=== PATIENT | female | born 1965 | race Caucasian/White ===

== ENCOUNTER 2017-04-20 21:52 | Emergency (ER) | payer OTHER ==
[~2017-04-20] VITALS: Ht 167.6 cm; Wt 54.3 kg
[~2017-04-20 21:52] MED LIST: ACIDTAB4 PO; AMIT10TA13 PO; HYDR-3534 PO; IBUP800T23 PO; VALT500T PO; ZOFR4TAB3 PO
[2017-04-20 22:46] VITALS: BP 136/75; PULSE 74; RESP 12; TEMP 99.4; O2SAT 98
[2017-04-20] MEDS ORDERED: SUMA25TA2 PO (23:50)
[2017-04-20] MEDS ORDERED: AMIT10TA6 PO (23:50)
[2017-04-21] MEDS ORDERED: KETOROLAC TROMETHAMINE 60 MG/2 ML (IM) VIAL IM ONE (00:45)
[2017-04-21] MEDS ORDERED: PROMETHAZINE INJ 25 MG/ML VIAL IM ONE (00:45)
[2017-04-21] MEDS ORDERED: PROM1SUP7 RECTAL (00:49)
[2017-04-21] MEDS ORDERED: BUTA1CAP PO (00:49)
--- NOTE | 2017-04-21 00:49 | PD ---
HPI Chief Complaint: Headache Time Seen by Provider: 00:29 Travel History International Travel<30 days: No Contact w/Intl Traveler<30days: No Traveled to known affect area: No History of Present Illness HPI Patient has 51-year-old female who comes in complaining of a migraine headache. Patient has allergies to penicillin. Patient states that this is not typical of her migraine headaches AND has been going on for the past 4 hours without improvement. No alleviating or aggravating factors. Denies any associated factors such as fever cough runny nose nausea vomiting diarrhea. 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) Cardiovascular Problems: No Cerebrovascular Accident: No Diabetes: No Diminished Hearing: No Endocrine: No Gastrointestinal Disorders: Yes Genitourinary: No Headaches: Yes Hepatitis: No Hiatal Hernia: No Immune Disorder: No Musculoskeletal: Yes (ARTHRITIS) Neurologic: Yes (HX MIGRAINES) Psychiatric: No Reproductive: No Respiratory: No Migraines: Yes Seizures: No Thyroid Disease: Yes (LUMPS ON THYROID THAT WERE NEGATIVE BIOPSY ) Tetanus Vaccination: Unknown Influenza Vaccination: No ?: Not LMP: MENAPAUSAL Menopausal: Yes Past Surgical History Abdominal Surgery: No AICD: No Body Medical Devices: BYRON SILICONE BREAST IMPLANTS Cardiac Surgery: No Ear Surgery: No Endocrine Surgery: No Eye Surgery: No Genitourinary Surgery: No Gynecologic Surgery: Yes (ENDOMETRIAL ABLATION 2006) Joint Replacement: No Oral Surgery: No Pacemaker: No Thoracic Surgery: Yes (BREAST AUG - IN/OUT OVER 3 MOS - REPEAT BREAST SILICONE IMPLANTS 2010) Social History Alcohol Use: Yes (OCCASIONALLY. ) Tobacco Use: Yes (1/2 PACK PER DAY ) Substance Use: No Allergies-Medications (Allergen,Severity, Reaction): Coded Allergies: penicillin G (Unverified Allergy, Severe, HIVES, 04/20/17) Reported Meds & Prescriptions Reported Meds & Active Scripts Active Reported Sumatriptan (Sumatriptan Succinate) 25 Mg Tab 25 Mg PO ONCE PRN If a satisfactory response has not been obtained at 2 hours, a second dose may be administered Amitriptyline (Amitriptyline HCl) 10 Mg Tab 10 Mg PO HS Review of Systems Except as stated in HPI: all other systems reviewed are Neg General / Constitutional: No: Fever Eyes: No: Visual changes HENT: Positive: Headaches Cardiovascular: No: Chest Pain or Discomfort Respiratory: No: Shortness of Breath Gastrointestinal: No: Abdominal Pain Genitourinary: No: Dysuria Musculoskeletal: No: Pain Skin: No Rash Neurologic: No: Weakness Psychiatric: No: Depression Endocrine: No: Polydipsia Hematologic/Lymphatic: No: Easy Bruising Physical Exam Narrative GENERAL: SKIN: Warm and dry. HEAD: Atraumatic. Normocephalic. EYES: Pupils equal and round. No scleral icterus. No injection or drainage. ENT: No nasal bleeding or discharge. Mucous membranes pink and moist. NECK: Trachea midline. No JVD. CARDIOVASCULAR: Regular rate and rhythm. RESPIRATORY: No accessory muscle use. Clear to auscultation. Breath sounds equal bilaterally. GASTROINTESTINAL: Abdomen soft, non-tender, nondistended. . MUSCULOSKELETAL: Extremities without clubbing, cyanosis, or edema. No obvious deformities. NEUROLOGICAL: Awake and alert. No obvious cranial nerve deficits. Motor grossly within normal limits. Five out of 5 muscle strength in the arms and legs. Normal speech. PSYCHIATRIC: Appropriate mood and affect; insight and judgment normal. Data Data Last Documented VS Vital Signs Date Time Temp Pulse Resp B/P (MAP) Pulse Ox O2 Delivery O2 Flow Rate FiO2 04/20/17 23:51 Room Air 04/20/17 22:46 99.4 74 12 136/75 (95) [address] Brain W/O Iv Contrast(Rout) (04/21/17 00:29) Ketorolac Inj (Toradol Inj) (04/21/17 00:45) Promethazine Inj (Phenergan Inj) (04/21/17 00:45) MDM Medical Decision Making Medical Screen Exam Complete: Yes Emergency Medical Condition: Yes Medical Record Reviewed: Yes Diagnosis Primary Impression: Headache Patient Instructions: Acute Headache (ED), General Instructions Scripts Promethazine Supp (Phenergan Supp) 25 Mg Supp 25 MG RECTAL Q6H Y for NAUSEA OR VOMITING, #7 SUPP 0 Refills Prov: Donnie Schaefer MD 04/21/17 Zegrilxtsi-Amwuiovcdbxix-Hoejilhe (Fioricet) 50-300-40 Mg Cap 1-2 CAP PO Q6H Y for HEADACHE, #14 CAP 0 Refills Prov: Donnie Schaefer MD 04/21/17 Disposition: 01 DISCHARGE HOME Condition: Stable Donnie Schaefer MD Apr 21, 2017 00:49
--- NOTE | 2017-04-21 01:21 | RADRPT ---
EXAM DATE/TIME: 04/21/2017 01:00 [facility] COMPARISON: No previous studies available for comparison. INDICATIONS : Cephalgia. RADIATION DOSE: 60.08 CTDIvol (mGy) MEDICAL HISTORY : None SURGICAL HISTORY : None. ENCOUNTER: Initial ACUITY: 2 days PAIN SCALE: 10/10 LOCATION: Bilateral cranial TECHNIQUE: Multiple contiguous axial images were obtained of the head. Using automated exposure control and adj ustment of the mA and/or kV according to patient size, radiation dose was kept as low as reasonably a chievable to obtain optimal diagnostic quality images. DICOM format image data is available electro nically for review and comparison. FINDINGS: CEREBRUM: The ventricles are normal for age. No evidence of midline shift, mass lesion, hemorrhage or acute in farction. No extra-axial fluid collections are seen. POSTERIOR FOSSA: The cerebellum and brainstem are intact. The 4th ventricle is midline. The cerebellopontine angle i s unremarkable. EXTRACRANIAL: The visualized portion of the orbits is intact. SKULL: The calvaria is intact. No evidence of skull fracture. CONCLUSION: 1. Negative noncontrast CT brain. Clinton Patel MD on April 21, 2017 at 1:19 Board Certified Radiologist. This report was verified electronically.
[2017-04-21 01:42] VITALS: RESP 16
[2017-04-21 02:08] VITALS: BP 130/78
== END 2017-04-21 02:13 | disposition home or self-care (01) ==
LOC: PHED 21:52
DX: R51 Headache (principal); M19.90 Unspecified osteoarthritis, unspecified site; F41.9 Anxiety disorder, unspecified; F17.210 Nicotine dependence, cigarettes, uncomplicated; Z88.0 Allergy status to penicillin
CPT/HCPCS: 70450; 96372; 99284; J1885; J2550

== ENCOUNTER → 2017-06-01 | Day surgery (SDC) | payer OTHER ==
[~2017-06-01] VITALS: Ht 167.6 cm; Wt 52.2 kg
[~2017-06-01] MED LIST changes: +*PROMETHAZINE 25 MG/ML VIAL PERIprocedural use ONLY ONE; +*morphine SULFATE 4 MG/ML PERIprocedure ONLY ONE; +ACETAMINOPHEN 1000 MG/100 ML 100 ML IV ONE; -ACIDTAB4 PO; -AMIT10TA13 PO; +AMIT10TA6 PO; +APREPITANT 40 MG CAP ONE; +BACITRACIN TOP OINT 15 GM TUBE ONE; +BUPIVACAINE HCL PF 0.5% 30 ML VIAL ONE; +BUTA1CAP PO; +CHLORHEXIDINE GLUCONATE 2 % 1 PACK (2 CLOTHS) TOPICAL PRN; +CLINDAMYCIN 300 MG/NS PREMIX 50 ML IV PRN; +DEXAMETHASONE SOD PHOS 4 MG/ML VIAL IV ONE; +DO NOT ADM ANY ANTICOAGULANT DRUGS PRN; -HYDR-3534 PO; +HYDROmorphone HCL PF 2 MG/ML VIAL ONE; +IBUP1TAB7 PO; -IBUP800T23 PO; +LACTATED RINGER'S 1000 ML INJ 500 ML IV SCH; +LACTATED RINGER'S 1000 ML IV PRN; +LIDOCAINE HCL 1% PF 5 ML SYRINGE OTHER ONE; +LIDOCAINE HCL 2% 50 ML VIAL ONE; +METOPROLOL TARTRATE 25 MG TAB PO PRN; +MIDAZOLAM HCL 2 MG/2 ML VIAL ONE; +ONDANSETRON HCL 4 MG/2 ML VIAL IV ONE; +POVIDONE IODINE 5% (ANTISEPSIS KIT) 4 APPLICATIONS EACH NARE PRN; +PROPOFOL 200 MG/20 ML AMP IV ONE; +SODIUM CHLORID 0.9% 500 ML IV PRN; -ZOFR4TAB3 PO; +ePHEDrine/NS 25 MG/5 ML SYRINGE IV ONE
--- NOTE | 2017-06-01 13:27 | EKG ---
Date Performed: 06/01/2017 Time Performed: 09:49:34 PTAGE: 51 years EKG: Sinus rhythm NORMAL ECG PREVIOUS TRACING : 09/30/1999 16.05 Since the prior tracing, there has been no significant cote DOCTOR: Greg Hi Interpretating Date/Time 06/01/2017 13:25:25
--- NOTE | 2017-06-01 15:38 | PD.OP ---
Operative Report Preoperative Diagnosis: (1) soft tissue mass left wrist Postoperative Diagnosis: (1) soft tissue mass left wrist Procedure: excision soft tissue mass left wrist Anesthesia: general Surgeon: Ron Razo Research And Development Engineer(s): luma Operation and Findings: dirty yellow lobulated soft to firm 3x3 cms over the volar aspect of the left wrist joint deep to FCR Ron Razo MD Jun 01, 2017 15:38
--- NOTE | 2017-06-01 16:14 | MP ---
cc: Ron Razo MD DATE OF OPERATION: 06/01/2017 PREOPERATIVE DIAGNOSIS: Soft tissue mass, left wrist. POSTOPERATIVE DIAGNOSIS: Soft tissue mass, left wrist. PROCEDURE: Excision, soft tissue mass, left wrist. SURGEON: Ron Razo MD ANESTHESIA: General. ESTIMATED BLOOD LOSS: Minimal. TOURNIQUET TIME: 27 minutes at 250 mmHg. SPECIMEN: Was sent to pathology. DISPOSITION: To PACU, stable. INDICATION: The patient is a 51-year-old female who presented with complaints of soft tissue mass over the ulnar aspect of the left wrist for the past 1 year, gradually increasing in size. On examination, she had a mass underneath the FCR tendon which was firm in consistency. Transillumination test was negative. She had an MRI scan which showed soft tissue mass underneath the FCR arising from the ulnar aspect of the wrist joint. The patient was consented for excision, soft tissue mass, left wrist. She was explained the risks and benefits of the procedure. DESCRIPTION OF PROCEDURE: The patient was brought to the operating room. Under general anesthesia, the left upper extremity was thoroughly prepped and draped. Incision was made over the FCR tendon sheath extending across the radial aspect of the wrist joint in a zig-zag fashion, measuring about 4-5 cm. After limb elevation, tourniquet was inflated to 250 mmHg. Incision was then made over the proposed incision site. Soft tissue dissection carried out, exposing the FCR tendon sheath. The FCR tendon sheath was incised. The FCR was retracted towards ulnar aspect. There was evidence of bulging from underneath FCR sheath. Deep fascia was then released underneath the FCR tendon sheath, exposing the soft tissue mass. The soft tissue mass was from the surrounding soft tissue. The median nerve was protected on the medial aspect. The radial artery was protected on the radial aspect. 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 The mass was excised, measured 2 x 3 cm. This was arising from deep to the FCR sheath on the ulnar aspect of the wrist joint. No further extensions were noted. Thorough wash was given using normal saline. Tourniquet was deflated. Total tourniquet time was 27 minutes. The patient had good distal circulation after release of tourniquet. Bleeding points were cauterized with bipolar cautery. After ensuring hemostasis, the skin flaps were then approximated using 4-0 nylon in a horizontal mattress fashion. Xeroform, Bacitracin dressing applied. About 5 mL of local anesthesia containing 0.5% Marcaine was injected across the incision site. A bulky hand dressing was applied, which was held in place by Sof-Rol and bias hand wrap. She had good distal circulation at the end of the procedure. She was recovered and sent to recovery room in stable condition. She will follow up with me in 2 days for a dressing change. Ron Razo MD SE/YASSINE , 03:42 PM , 04:13 PM
[2017-06-01 17:45] VITALS: BP 134/79; PULSE 84; RESP 16; TEMP 97.7; O2SAT 95
== END | disposition home or self-care (01) ==
LOC: HSDC 09:25
PROVIDERS: ATTEND Surgery Surgery of the Hand
DX: D48.1 Neoplasm of uncertain behavior of connective and other soft tissue (principal); Z01.810 Encounter for preprocedural cardiovascular examination
CPT/HCPCS: 00400; 25071; 88307; 93005; J0131; J1100; J1170; J2250; J2270; J2405; J2550; J3010; J8501; 88305